=== PATIENT | female | born 1970 | race American Indian/Alaskan Native ===

== ENCOUNTER 2017-11-24 14:12 | Emergency (ER) | payer SELFPAY ==
[2017-11-24 14:19] VITALS: BP 161/103
[2017-11-24] MEDS ORDERED: TYLENOL #3 PO ONE (19:44)
[2017-11-24] MEDS ORDERED: ZOFRAN ODT PO ONE (19:44)
--- NOTE | 2017-11-24 20:28 | XRay Report ---
FINAL REPORT EXAM: XR KNEE 3V RT HISTORY: fall/pain TECHNIQUE: Three views of the left knee PRIORS: None. FINDINGS: The bones are normally aligned and mineralized. There is mild narrowing of the medial joint with mild subchondral sclerosis. There is mild osteophyte formation on the posterior patella. There is no evidence of acute fracture. The soft tissues are unremarkable. 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
--- NOTE | 2017-11-24 20:52 | Emergency Department Report ---
ED Lower Extremity HPI - General Chief Complaint: Earache Stated Complaint: (L) LEFT PAIN/(R) EAR PAIN Time Seen by Provider: 11/24/17 19:28 Source: patient Mode of arrival: Ambulatory Limitations: No Limitations - History of Present Illness Initial Comments: Patient complains of left knee pain after falling after tripping. Patient is concerned because she states her knee feels unstable when walking" to the left. Patient also complains of a bump in her right ear as causing pain as well. Patient states she did not hit her head or have loss of consciousness with the fall occurred. Patient denies any chest pain, abdominal pain, headache. MD Complaint: knee injury -: Sudden Injury: Knee: Left Type of Injury: blunt Place: home Severity scale (0 -10): 6 Improves With: nothing Worsens With: movement Context: fall, direct blow Associated Symptoms: swelling, able to partially bear weight - Related Data Home Medications Medication Instructions Recorded Confirmed Last Taken Mv-Mn/Iron/Folic Acid/Herb 190 5,000 unit PO DAILY 06/20/16 06/30/16 06/19/16 [Vitamin D3 Complete Caplet] Potassium Bicarbonate/Cit AC 20 meq PO DAILY 06/20/16 06/29/16 1 Day Ago [Potassium 25 Meq Tablet Eff] ~06/28/16 Tamoxifen Citrate 20 mg PO QDAY 06/20/16 06/29/16 1 Day Ago ~06/28/16 Zolpidem [Ambien] 5 mg PO QHS PRN 06/20/16 06/29/16 06/19/16 metFORMIN [Glucophage] 1,000 mg PO BID 06/20/16 06/29/16 1 Day Ago ~06/28/16 oxyCODONE ER [OxyCONTIN ER TAB] 10 mg PO Q12HR 06/20/16 06/29/16 1 Day Ago ~06/28/16 Ondansetron [Zofran ODT TAB] 4 mg PO QID 06/29/16 06/29/16 1 Day Ago ~06/28/16 glipiZIDE ER 5 mg PO DAILY 06/29/16 06/29/16 1 Day Ago ~06/28/16 oxyCODONE /ACETAMINOPHEN [Percocet 1 tab PO Q4HR PRN 06/29/16 06/29/16 1 Day Ago 5/325 mg] ~06/28/16 Previous Rx's Medication Instructions Recorded Last Taken Type HYDROcodone/ACETAMINOPHEN [[place] 1 each PO Q6HR PRN #20 tablet 11/24/17 Unknown Rx 5-325 Tablet] Allergies Allergy/AdvReac Type Severity Reaction Status Date / Time No Known Allergies Allergy Verified 11/24/17 14:17 ED Review of Systems ROS: Stated complaint: (L) LEFT PAIN/(R) EAR PAIN Other details as noted in HPI Comment: All other systems reviewed and negative Constitutional: denies: chills, fever Eyes: denies: eye pain, eye discharge, vision change ENT: denies: ear pain, throat pain Respiratory: denies: cough, shortness of breath, wheezing Cardiovascular: denies: chest pain, palpitations Endocrine: no symptoms reported Gastrointestinal: denies: abdominal pain, nausea, diarrhea Genitourinary: denies: urgency, dysuria, discharge Musculoskeletal: other (knee pain pain). 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, bone cancer - Surgical History Hx Appendectomy: Yes Additional Surgical History: c-sect - Social History Smoking Status: Never Smoker Substance Use Type: None - Medications Home Medications: Home Medications Medication Instructions Recorded Confirmed Last Taken Type Mv-Mn/Iron/Folic Acid/Herb 190 5,000 unit PO DAILY 06/20/16 06/30/16 06/19/16 History [Vitamin D3 Complete Caplet] Potassium Bicarbonate/Cit AC 20 meq PO DAILY 06/20/16 06/29/16 1 Day Ago History [Potassium 25 Meq Tablet Eff] ~06/28/16 Tamoxifen Citrate 20 mg PO QDAY 06/20/16 06/29/16 1 Day Ago History ~06/28/16 Zolpidem [Ambien] 5 mg PO QHS PRN 06/20/16 06/29/16 06/19/16 History metFORMIN [Glucophage] 1,000 mg PO BID 06/20/16 06/29/16 1 Day Ago History ~06/28/16 oxyCODONE ER [OxyCONTIN ER TAB] 10 mg PO Q12HR 06/20/16 06/29/16 1 Day Ago History ~06/28/16 Ondansetron [Zofran ODT TAB] 4 mg PO QID 06/29/16 06/29/16 1 Day Ago History ~06/28/16 glipiZIDE ER 5 mg PO DAILY 06/29/16 06/29/16 1 Day Ago History ~06/28/16 oxyCODONE /ACETAMINOPHEN [Percocet 1 tab PO Q4HR PRN 06/29/16 06/29/16 1 Day Ago History 5/325 mg] ~06/28/16 HYDROcodone/ACETAMINOPHEN [[place] 1 each PO Q6HR PRN #20 tablet 11/24/17 Unknown Rx 5-325 Tablet] ED Physical Exam - General Limitations: No Limitations General appearance: alert, in no apparent distress - Head Head exam: Present: atraumatic, normocephalic - Eye Eye exam: Present: normal appearance, PERRL, EOMI - ENT ENT exam: Present: mucous membranes moist, TM's normal bilaterally, normal external ear exam, other (chest as you enter the right eustachian tube there is mild inflammation with a pustule similiar to a pimple) - Neck Neck exam: Present: normal inspection - Respiratory Respiratory exam: Present: normal lung sounds bilaterally. Absent: respiratory distress, wheezes, rales - Cardiovascular Cardiovascular Exam: Present: regular rate, normal rhythm. Absent: systolic murmur, diastolic murmur, rubs, gallop - GI/Abdominal GI/Abdominal exam: Present: soft, normal bowel sounds. Absent: distended, tenderness - Extremities Exam Extremities exam: Present: tenderness, other (ttp of the medial aspect of the left knee. Left knee positive drawer sign, anterior. There is slight swelling of the knee) - Back Exam Back exam: Present: normal inspection - Neurological Exam Neurological exam: Present: alert, oriented X3 - Psychiatric Psychiatric exam: Present: normal affect, normal mood - Skin Skin exam: Present: warm, dry, intact, normal color. Absent: rash ED Course Vital Signs 11/24/17 14:17 Temperature 99.3 F Pulse Rate 104 H Respiratory 18 Rate Blood Pressure 161/103 O2 Sat by Pulse 97 Oximetry ED Lower Extremity MDM - Medical Decision Making discussed results with patient Knee brace applied Critical care attestation.: If time is entered above; I have spent that time in minutes in the direct care of this critically ill patient, excluding procedure time. ED Disposition Clinical Impression: Knee pain, left Disposition: [id number]-01 TO HOME OR SELFCARE Is pt being admited?: No Does the pt Need Aspirin: No Condition: Stable Instructions: Knee Pain (ED) Additional Instructions: return if worse Prescriptions: HYDROcodone/ACETAMINOPHEN [[place] 5-325 Tablet] 1 each PO Q6HR PRN #20 tablet PRN Reason: pain Referrals: PRIMARY CARE, [Primary Care Provider] - 3-5 Days [facility] [Provider Group] - 3-5 Days [facility] [place] [Outside] - 3-5 Days [facility] [Provider Group] - 3-5 Days Time of Disposition: 20:55
== END 2017-11-24 21:30 | disposition home or self-care (01) ==
LOC: ED 14:12
DX: M25.562 Pain in left knee (principal); R22.42 Localized swelling, mass and lump, left lower limb; H60.01 Abscess of right external ear
CPT/HCPCS: 29530; Q0162